=== PATIENT | female | born 1995 | race Two or more races ===

== ENCOUNTER 2021-05-17 16:08 | Emergency (ER) | payer OTHER ==
[~2021-05-17] VITALS: Ht 152.4 cm; Wt 115.7 kg
[2021-05-17 16:16] VITALS: BP 134/84
== END 2021-05-17 17:20 | disposition home or self-care (01) ==
LOC: ER 16:08
DX: S93.401A Sprain of unspecified ligament of right ankle, initial encounter (principal); W18.39XA Other fall on same level, initial encounter; Y93.01 Activity, walking, marching and hiking; Y92.89 Other specified places as the place of occurrence of the external cause; Y99.8 Other external cause status
CPT/HCPCS: 73610